=== PATIENT | female | born 1950 | race Caucasian/White ===

== ENCOUNTER 2019-05-01 11:33 | Emergency (ER) | payer MEDICARE, BC ==
[~2019-05-01] VITALS: Ht 157.5 cm; Wt 56.2 kg
[~2019-05-01 11:33] MED LIST: HYDR-3641 PO; TRIA5PAS4 SUBCUT
[2019-05-01] MEDS ORDERED: DOCUSATE SODIUM 100 MG/10 ML LIQUID UDC OT ONE (12:00)
[2019-05-01] MEDS ORDERED: DOCUSATE SODIUM 100 MG/10 ML LIQUID UDC ONE (12:02)
--- NOTE | 2019-05-01 13:14 | NUR ---
Patient discharged to home in stable condition with brisk steady gait. Written and verbal after care instructions given to patient and spouse by MD herself. Patient verbalizes understanding of instructions.
== END 2019-05-01 13:17 | disposition home or self-care (01) ==
LOC: ER 11:33
DX: H61.21 Impacted cerumen, right ear (principal); I48.91 Unspecified atrial fibrillation; Z79.899 Other long term (current) drug therapy
CPT/HCPCS: A4663